=== PATIENT | male | born 1990 | race African-American/Black ===

== ENCOUNTER 2016-11-18 09:56 | Emergency (ER) | payer OTHER, MEDICAID ==
--- NOTE | 2016-11-18 10:00 | ED Physician Chart ---
Chief Complaint/HPI - Patient Information Date Seen:: 11/18/16 Time Seen:: 09:59 Chief Complaint:: dysuria History of Present Illness:: 26-year-old male complains of acute, constant, moderate to severe, dysuria times one month. Has associated rash in his genitalia. This concerned he may have an STD. Historian:: Patient Review:: Nurse's Note Reviewed Review of Systems - Review of Systems Other: Complete system review otherwise unremarkable except as noted in HPI. Past Medical History - Past Medical History Past Medical History: No significant medical hx Family History: None Social History: Non Smoker, No Alcohol, No Drug Use, Employed Surgical History: None Psychiatricy History: None Medication: None Family Medical History - Family Member Mother History Unknown: Yes Ethnicity: Non- Physical Exam - Physical Examination Other:: INITIAL VITAL SIGNS: Reviewed by me GENERAL: Alert and interactive. No acute distress HEAD: Head is normocephalic and atraumatic EYES: EOMI. . No scleral icterus. No conjunctival injection ENT: Moist mucous membranes. NECK: Supple. No masses. Full range of motion RESPIRATORY: No tachypnea. Clear breath sounds bilaterally. No wheezing, rales, or rhonchi CV: Regular rate and rhythm. No murmurs, rubs, or gallops ABDOMEN: Soft, non-distended, non-tender. No guarding. No rebound. No masses. EXTREMITIES: No deformity. No cyanosis. No edema. SKIN: Warm and dry. No obvious rashes. NEUROLOGIC: Alert and oriented. Face is symmetric. Speech is normal. Moves all extremities equally. Motor and sensory distally intact. ED Septic Shock - . Is Septic Shock (SBP<90, OR Lactate>4 mmol\L) present?: No Reassessment (Disposition) - Reassessment Reassessment:: We treated for chlamydia and gonorrhea here in the ER. Testing was ordered. Results to be obtained about 1 week. Patient's contact information was obtained for follow-up results. Rash appears to be folliculitis. Follow-up PCP 1-2 days. Return to ER precautions given. Patient understands and agrees with the plan. Reassessment Condition:: Improved - Diagnosis Diagnosis:: Sexually transmitted disease - Aftercare/Follow up Instructions Aftercare/Follow-Up Instructions:: Counseled pt regarding lab results/diagnosis & need follow up, Refer to Discharge Instructions - Patient Disposition Discharge/Transfer:: Home Time:: 10:12 Condition at Disposition:: Improved ED Discharge Plan - Patient Disposition Admit/Discharge/Transfer: PT DISCHARGED HOME Instructions: Sexually Transmitted Disease, [id number] Accepting Physician: Iftikhar Sanches V. [Provisional Staff] - 1-3 Days
[2016-11-18 10:25] VITALS: BP 114/70
[2016-11-18 10:40] LABS: URINE BILIRUBIN NEGATIVE (NEGATIVE); URINE BLOOD NEGATIVE (NEGATIVE); URINE COLOR YELLOW; URINE GLUCOSE (UA) NEGATIVE (NEGATIVE); URINE KETONE NEGATIVE (NEGATIVE); URINE PROTEIN 30 mg/dL (NEGATIVE)
[2016-11-18 10:46] LABS: URINE RBC 0-2 /hpf (0-5)
[2016-11-18 10:47] LABS: URINE BACTERIA OCCASIONAL /hpf (NONE SEEN); URINE EPITHELIAL CELLS RARE /lpf (FEW)
== END 2016-11-18 10:42 | disposition home or self-care (01) ==
LOC: ER 09:56
DX: A64 Unspecified sexually transmitted disease (principal)
CPT/HCPCS: 81001-TC; 87491-90; J0696; Z7502